=== PATIENT | male | born 1990 | race American Indian/Alaskan Native ===

== ENCOUNTER 2016-08-18 15:52 | Inpatient (IN) | payer OTHER ==
--- NOTE | 2016-08-18 16:31 | Emergency Department Report ---
Chief Complaint: Seizure Stated Complaint: SEIZURES/HEADACHES Time Seen by Provider: 08/18/16 16:21 - HPI History of Present Illness: 26-year-old male accompanied with his domestic partner, presents today with severe headache and vomiting. Partner states that he's had multiple seizures since last night. Denies head injury or trauma. Patient is currently taking Keppra and when had for his seizures but did not take his dose last night or this morning. Patient states is the worst headache he's ever had. - ROS Review of Systems: Per HPI - Exam Vital Signs: Vital Signs 08/18/16 16:00 Temperature 98.1 F Pulse Rate 93 H Respiratory 18 Rate Blood Pressure 136/83 O2 Sat by Pulse 100 Oximetry Physical Exam: General: 26-year-old male in mild to moderate distress. Well-developed, well- nourished. CV: Regular rate and rhythm. Lungs: Clear to auscultation bilaterally. MSE screening note: Focused history and physical exam performed. Due to findings the following was ordered: ED Disposition for MSE Condition: Stable
--- NOTE | 2016-08-18 16:42 | Cat Scan Report ---
CT HEAD WITHOUT CONTRAST INDICATION: Headache. COMPARISON: None similar at this institution. FINDINGS: Noncontrast head CT demonstrates normal ventricles and sulci without acute or recent infarct, hemorrhage, mass effect or midline shift. No abnormal extra-axial fluid collections. Posterior fossa structures and basilar cisterns appear within normal limits. Symmetric eye globes. Clear paranasal sinuses and mastoid air cells. Intact calvarium. Normal overlying scalp soft tissues. CONCLUSION: No acute intracranial CT abnormality, as described. Thank you for the opportunity to participate in this patient's care.
[2016-08-18 17:14] LABS: Hematocrit 42.5 % (35.5-45.6); Mean Corpuscular HGB Conc 33 % (32-34); Mean Corpuscular Hemoglobin 27 pg (28-32); Mean Corpuscular Volume 83 fl (84-94); Platelet Count 203 K/mm3 (140-440); Red Blood Count 5.11 M/mm3 (3.65-5.03); Red Cell Distribution Width 14.5 % (13.2-15.2); White Blood Count 16.1 K/mm3 (4.5-11.0)
[2016-08-18 17:28] LABS: Anion Gap 22 mmol/L; Blood Urea Nitrogen 11 mg/dL (9-20); Calcium 9.6 mg/dL (8.4-10.2); Carbon Dioxide 26 mmol/L (22-30); Chloride 99.8 mmol/L (98-107); Glucose 150 mg/dL (75-100); Potassium 4.6 mmol/L (3.6-5.0); Sodium 143 mmol/L (137-145)
--- NOTE | 2016-08-18 20:03 | Emergency Department Report ---
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 Apparently he witnessed several brief 1-2 minute seizures which typically occur "nocturnally". The patient has a history of nocturnal seizures for the past several years. He has been followed by a neurologist in [place]. He also he has been down here for some time now he does not have a neurologist nor a family doctor. He admits missing a few doses of his Keppra. He also is taking Vimpat. During the day the patient states he had a severe headache particularly this morning. His headache is still ongoing although it is mild now and he declines taking any pain medication. He also has had some intermittent nausea and has vomited once in the emergency department he denies neck pain or stiffness. He denies photophobia. He denies any significant ongoing nausea. The patient states that he had an HIV test last approximately one year ago and that it was negative. He denies any other medical problems or history of head trauma. -: Gradual, hour(s) Location: head (bifrontal nonradiating) Radiation: non-radiation Severity scale (0 -10): 0 Quality: aching Consistency: now resolved (no substantially improved) Improves with: none Worsens with: none Associated Symptoms: denies other symptoms Treatments Prior to Arrival: none - Related Data Home Medications Medication Instructions Recorded Confirmed Last Taken Lacosamide [Vimpat] 200 mg PO BID 08/18/16 08/18/16 Unknown levETIRAcetam [Keppra TAB] 500 mg PO TID 08/18/16 08/18/16 Unknown Allergies Allergy/AdvReac Type Severity Reaction Status Date / Time No Known Allergies Allergy Unverified 08/18/16 16:03 ED Review of Systems ROS: Stated complaint: SEIZURES/HEADACHES Other details as noted in HPI Constitutional: denies: chills, fever Eyes: denies: eye pain, eye discharge, vision change ENT: denies: ear pain, throat pain Respiratory: denies: cough, shortness of breath, wheezing Cardiovascular: denies: chest pain, palpitations Endocrine: no symptoms reported Gastrointestinal: denies: abdominal pain, nausea, diarrhea Genitourinary: denies: urgency, dysuria Musculoskeletal: denies: back pain, joint swelling, arthralgia Skin: denies: rash, lesions Neurological: headache. denies: weakness, paresthesias Psychiatric: denies: anxiety, depression Hematological/Lymphatic: denies: easy bleeding, easy bruising ED Past Medical Hx - Past Medical History Additional medical history: seizures - Social History Smoking Status: Never Smoker Substance Use Type: Alcohol - Medications Home Medications: Home Medications Medication Instructions Recorded Confirmed Last Taken Type Lacosamide [Vimpat] 200 mg PO BID 08/18/16 08/18/16 Unknown History levETIRAcetam [Keppra TAB] 500 mg PO TID 08/18/16 08/18/16 Unknown History ED Physical Exam - General Limitations: No Limitations General appearance: alert, in no apparent distress - Head Head exam: Present: atraumatic, normocephalic, normal inspection - Eye Eye exam: Present: normal appearance, PERRL, EOMI. Absent: scleral icterus Pupils: Present: normal accommodation - ENT ENT exam: Present: normal exam, mucous membranes moist - Neck Neck exam: Present: normal inspection. Absent: tenderness, meningismus - Respiratory Respiratory exam: Present: normal lung sounds bilaterally. Absent: respiratory distress - Cardiovascular Cardiovascular Exam: Present: regular rate, normal rhythm. Absent: systolic murmur, diastolic murmur, rubs, gallop - GI/Abdominal GI/Abdominal exam: Present: soft, normal bowel sounds. Absent: distended, tenderness, guarding, rebound, rigid - Rectal Rectal exam: Present: deferred - Extremities Exam Extremities exam: Present: normal inspection - Back Exam Back exam: Present: normal inspection - Neurological Exam Neurological exam: Present: alert, oriented X3, CN II-XII intact. Absent: motor sensory deficit - Psychiatric Psychiatric exam: Present: normal affect, normal mood - Skin Skin exam: Present: warm, dry, intact, normal color. Absent: rash ED Course Vital Signs 08/18/16 08/18/16 08/18/16 16:00 18:25 18:26 Temperature 98.1 F 98.2 F Temperature [ Intra-Procedure ] Temperature [ Post-Procedure] Temperature [ Pre-Procedure] Pulse Rate 93 H 80 Pulse Rate [ Intra-Procedure ] Pulse Rate [ Post-Procedure] Pulse Rate [Pre -Procedure] Respiratory 18 16 16 Rate Respiratory Rate [Intra- Procedure] Respiratory Rate [Post- Procedure] Respiratory Rate [Pre- Procedure] Blood Pressure 136/83 Blood Pressure [Intra- Procedure] Blood Pressure 135/78 [Left] Blood Pressure [Post-Procedure ] Blood Pressure [Pre-Procedure] O2 Sat by Pulse 100 99 99 Oximetry O2 Sat by Pulse Oximetry [ Intra-Procedure ] O2 Sat by Pulse Oximetry [Post -Procedure] O2 Sat by Pulse Oximetry [Pre- Procedure] 08/18/16 08/18/16 19:00 21:25 Temperature 98 F Temperature [ 99.7 F H Intra-Procedure ] Temperature [ 98.9 F Post-Procedure] Temperature [ 99.2 F Pre-Procedure] Pulse Rate 82 Pulse Rate [ 103 H Intra-Procedure ] Pulse Rate [ 96 H Post-Procedure] Pulse Rate [Pre 96 H -Procedure] Respiratory 16 Rate Respiratory 20 Rate [Intra- Procedure] Respiratory 20 Rate [Post- Procedure] Respiratory 18 Rate [Pre- Procedure] Blood Pressure Blood Pressure 115/55 [Intra- Procedure] Blood Pressure 123/68 [Left] Blood Pressure 115/67 [Post-Procedure ] Blood Pressure 122/53 [Pre-Procedure] O2 Sat by Pulse 100 Oximetry O2 Sat by Pulse 100 Oximetry [ Intra-Procedure ] O2 Sat by Pulse 97 Oximetry [Post -Procedure] O2 Sat by Pulse 98 Oximetry [Pre- Procedure] - Reevaluation(s) Reevaluation #1: Lumbar puncture performed. Patient tolerated well. Perhaps an hour or an hour and a half later he had an additional generalized seizure. It was witnessed. He was given a gram of Keppra IV. Case was discussed with the hospitalist Dr. Trujillo. The patient will be admitted for further care and evaluation. His lumbar puncture cell count was 0/0. 08/18/16 23:37 - Lumbar Puncture Consent Obtained: verbal consent Time Out Performed: No Indication for Procedure: headache, other Patient Position: Sitting Upright/Leaning F Skin Prep: Povidone-Iodine 1% Local Anesthetic Used: Lidocaine 1% Spinal Needle Gauge: 20G Spinal Needle Length: 3.5in Interspace Used: L4-L5 Fluid Initially Obtained: clear Complications: none Patient Tolerated Procedure: well Additional Comments: insered less than 2". Single puncture clear fluid. ED Medical Decision Making - Lab Data Result diagrams: 08/18/16 16:57 08/18/16 16:57 Laboratory Results - last 24 hr 08/18/16 08/18/16 08/18/16 16:57 16:57 16:57 WBC 16.1 H RBC 5.11 H Hgb 14.0 Hct 42.5 MCV 83 L MCH 27 L MCHC 33 RDW 14.5 Plt Count 203 Lymph % (Auto) 6.7 L [place] % (Auto) 4.2 Eos % (Auto) 0.0 Baso % (Auto) 0.0 Lymph # 1.1 L [place] # 0.7 Eos # 0.0 Baso # 0.0 Seg Neutrophils % 89.1 H Seg Neutrophils # 14.4 H Sodium 143 Potassium 4.6 Chloride 99.8 Carbon Dioxide 26 Anion Gap 22 BUN 11 Creatinine 1.0 Estimated GFR > 60 BUN/Creatinine Ratio 11.00 Glucose 150 H Calcium 9.6 Plasma/Serum Alcohol < 0.01 Laboratory Results - last 24 hr 08/18/16 08/18/16 08/18/16 16:57 16:57 16:57 WBC 16.1 H RBC 5.11 H Hgb 14.0 Hct 42.5 MCV 83 L MCH 27 L MCHC 33 RDW 14.5 Plt Count 203 Lymph % (Auto) 6.7 L [place] % (Auto) 4.2 Eos % (Auto) 0.0 Baso % (Auto) 0.0 Lymph # 1.1 L [place] # 0.7 Eos # 0.0 Baso # 0.0 Seg Neutrophils % 89.1 H Seg Neutrophils # 14.4 H Sodium 143 Potassium 4.6 Chloride 99.8 Carbon Dioxide 26 Anion Gap 22 BUN 11 Creatinine 1.0 Estimated GFR > 60 BUN/Creatinine Ratio 11.00 Glucose 150 H Calcium 9.6 Urine Color Urine Turbidity Urine pH Ur Specific [place] Urine Protein Urine Glucose (UA) Urine Ketones Urine Blood Urine Nitrite Urine Bilirubin Urine Urobilinogen Ur Leukocyte Esterase Urine WBC (Auto) Urine RBC (Auto) U Epithel Cells (Auto) Uric Acid Crystals Urine Mucus CSF Appearance CSF Color CSF WBC CSF RBC CSF Seg Neutrophils CSF Lymphocytes % CSF Reactive Lymphs CSF Monocytes % CSF Eosinophils % CSF Basophils CSF Comment CSF Pathologist Review CSF Glucose CSF Total Protein Urine Opiates Screen Urine Methadone Screen Ur Barbiturates Screen Ur Phencyclidine Scrn Ur Amphetamines Screen U Benzodiazepines Scrn Urine Cocaine Screen U Marijuana (THC) Screen Drugs of Abuse Note Plasma/Serum Alcohol < 0.01 08/18/16 08/18/16 08/18/16 20:33 20:33 21:40 WBC RBC Hgb Hct MCV MCH MCHC RDW Plt Count Lymph % (Auto) [place] % (Auto) Eos % (Auto) Baso % (Auto) Lymph # [place] # Eos # Baso # Seg Neutrophils % Seg Neutrophils # Sodium Potassium Chloride Carbon Dioxide Anion Gap BUN Creatinine Estimated GFR BUN/Creatinine Ratio Glucose Calcium Urine Color Yellow Urine Turbidity Cloudy Urine pH 5.0 Ur Specific [place] 1.015 Urine Protein <15 mg/dl Urine Glucose (UA) Neg Urine Ketones 20 Urine Blood Neg Urine Nitrite Neg Urine Bilirubin Neg Urine Urobilinogen < 2.0 Ur Leukocyte Esterase Neg Urine WBC (Auto) 1.0 Urine RBC (Auto) 1.0 U Epithel Cells (Auto) < 1.0 Uric Acid Crystals 2+ Urine Mucus Few CSF Appearance Clear CSF Color Colorless CSF WBC 0 CSF RBC 0 CSF Seg Neutrophils 0 CSF Lymphocytes % 0 CSF Reactive Lymphs 0 CSF Monocytes % 0 CSF Eosinophils % 0 CSF Basophils 0 CSF Comment No cells seen CSF Pathologist Review C CSF Glucose 83 CSF Total Protein 24 Urine Opiates Screen Presumptive negative Urine Methadone Screen Presumptive negative Ur Barbiturates Screen Presumptive negative Ur Phencyclidine Scrn Presumptive negative Ur Amphetamines Screen Presumptive negative U Benzodiazepines Scrn Presumptive negative Urine Cocaine Screen Presumptive negative U Marijuana (THC) Screen Presumptive negative Drugs of Abuse Note Disclamer Plasma/Serum Alcohol - Radiology Data Radiology results: report reviewed (no intracranial abnormality on CT) interpreted by me: No intracranial ABN Critical care attestation.: If time is entered above; I have spent that time in minutes in the direct care of this critically ill patient, excluding procedure time. ED Disposition Clinical Impression: Recurrent seizures Epilepsy Qualifiers: Epilepsy type: unspecified Intractability: not intractable Status epilepticus: without status epilepticus Qualified Code(s): G40.909 - Epilepsy, unspecified, not intractable, without status epilepticus Cephalalgia Qualifiers: Headache type: unspecified Headache chronicity pattern: acute headache Intractability: not intractable Qualified Code(s): R51 - Headache Leukocytosis Qualifiers: Leukocytosis type: unspecified Qualified Code(s): D72.829 - Elevated white blood cell count, unspecified Disposition: OP ADMITTED IP TO THIS HOSP Is pt being admited?: Yes Does the pt Need Aspirin: Yes Condition: Stable Referrals: PRIMARY CARE, [Primary Care Provider] - 3-5 Days Time of Disposition: 23:41
[2016-08-18 20:40] LABS: Urine Drugs of Abuse Note Disclamer
[2016-08-18 21:14] LABS: Bilirubin,Urine NEG (Negative); Blood,Urine NEG (Negative); Ketones,Urine 20 mg/dL (Negative); Leukocyte Esterase,Urine NEG (Negative); Mucus,Urine FEW /HPF; Nitrite,Urine NEG (Negative); Protein,Urine <15 mg/dL mg/dL (Negative); Uric Acid Crystals,Urine 2+; Urobilinogen,Urine < 2.0 mg/dL (<2.0)
[2016-08-18] MEDS ORDERED: NORCO 5/325 ONE (21:40)
[2016-08-18] MEDS ORDERED: NORCO 5/325 PO ONE (22:02)
[2016-08-18] MEDS ORDERED: ZOFRAN ODT PO ONE (22:03)
[2016-08-18 22:24] LABS: Glucose,CSF 83 mg/dL
[2016-08-18 22:33] LABS: Appearance,CSF Clear; White Blood Cell,CSF 0 /mm3 (1-10)
[2016-08-18 22:46] LABS: Basophils CSF 0 %; CSF Diff Status Complete
[2016-08-18] MEDS ORDERED: ATIVAN ONE (23:01)
[2016-08-18] MEDS ORDERED: KEPPRA 1,000 MG/NS 0.75% 100ML 1,000 MG/100 ML BAG IV ONE ×2 (23:01→23:18)
--- NOTE | 2016-08-18 23:36 | History and Physical Report ---
History of Present Illness Date of examination: 08/18/16 History of present illness: 26-year-old man with a history of seizures comes emergency room because he had 3 seizures last night and one today. Patient states that he missed doses of his keppra. Patient was complaining of a headache, nausea vomiting, that has now improved significantly. His headache is frontal, dull, constant, intensity to really 10, no radiation any cannot identify exacerbating or relieving factors. Patient denies chest pain, palpitation, shortness of breath, cough, abdominal pain, hematochezia, dysuria, frequency, focal weakness, dysarthria, fever chills , polydipsia polyuria, hot or cold intolerance, easy bruisability, or rash or bleeding from mucosal membrane, rhinorrhea, epistaxis, earache, tinnitus, blurry vision, eye discharge, anxiety, depression. Other review of systems negative PAST SURGICAL HISTORY: None SOCIAL HISTORY: Denies alcohol, tobacco, drugs FAMILY HISTORY: Hypertension Medications and Allergies Allergies Allergy/AdvReac Type Severity Reaction Status Date / Time No Known Allergies Allergy Unverified 08/18/16 16:03 Home Medications Medication Instructions Recorded Confirmed Last Taken Type Lacosamide [Vimpat] 200 mg PO BID 08/18/16 08/18/16 Unknown History levETIRAcetam [Keppra TAB] 500 mg PO TID 08/18/16 08/18/16 Unknown History Exam - Physical Exam Narrative exam: Gen. appearance: Patient lying in bed, no apparent distress HEENT: Normocephalic, atraumatic, pupils equally round and reactive to light, extraocular movement intact, and no sclericterus,. No JVD or thyromegaly or nodule,neck supple, no carotid bruit ,mucous membranes moist, no exudate or erythema Heart: S1, S2, regular rate and rhythm Lungs: Clear to auscultation bilaterally, breathing comfortable Abdomen: Positive bowel sounds, nontender, nondistended, no organomegaly Extremity: No edema, cyanosis, clubbing Skin: No rash, nodules, warm, dry Neuro: Oriented 3, cranial nerves II-12 intact, speech is fluent, motor and sensory intact - Constitutional Vitals: Temp Pulse Resp BP Pulse Ox 99.2 F 96 H 18 122/53 98 08/18/16 21:25 08/18/16 21:25 08/18/16 21:25 08/18/16 21:25 08/18/16 21:25 Results - Labs CBC & Chem 7: 08/18/16 16:57 08/18/16 16:57 Labs: Abnormal lab results 08/18/16 08/18/16 Range/Units 16:57 16:57 WBC 16.1 H (4.5-11.0) K/mm3 RBC 5.11 H (3.65-5.03) M/mm3 MCV 83 L (84-94) fl MCH 27 L (28-32) pg Lymph % (Auto) 6.7 L (13.4-35.0) % Lymph # 1.1 L (1.2-5.4) K/mm3 Seg Neutrophils % 89.1 H (40.0-70.0) % Seg Neutrophils # 14.4 H (1.8-7.7) K/mm3 Glucose 150 H (75-100) mg/dL - Imaging and Cardiology CT Scan - head: report reviewed Assessment and Plan Seizure, acute on chronic Leukocytosis most likely secondary to stress Admits medicine Status post loading dose of Keppra Restart seizure medications, start IV Ativan as needed for breakthrough seizure Start DVT prophylaxis
[2016-08-18] MEDS ORDERED: BABY ASPIRIN PO ONE (23:42)
[2016-08-19] MEDS ORDERED: DULCOLAX PR PRN (00:13)
[2016-08-19] MEDS ORDERED: TYLENOL PO PRN (00:13)
[2016-08-19] MEDS ORDERED: MILK OF MAGNESIA PO PRN (00:13)
[2016-08-19] MEDS ORDERED: ZOFRAN IV PRN (00:13)
[2016-08-19] MEDS ORDERED: ATIVAN IV PRN (00:13)
[2016-08-19] MEDS ORDERED: PERCOCET 5/325 PO PRN (00:13)
[2016-08-19] MEDS ORDERED: NACL 0.9% 1000 ML 1,000 ML IV SCH (01:00)
[2016-08-19] MEDS ORDERED: KEPPRA PO SCH (08:00)
--- NOTE | 2016-08-19 09:31 | Admit Criteria Form ---
Admission Criteria Documentation: SEIZURE Clinical Indications for Admission to Inpatient Care (Place 'X' for any and all applicable criteria): Admission is indicated for seizure and ANY ONE of the following(1)(2)(3)(4)(5): [X]I. Inpatient admission required rather than observation care (Also use Seizure: Observation Care Criteria as appropriate) because of ANY ONE of the following: [ ]a) Altered mental status that is severe or persistent [ ]b) New focal neurologic deficit that is severe or persistent [ ]c) Metabolic disorder (eg, hypoglycemia, hyponatremia) that is severe or persistent [X]d) Recurrent seizure [ ]e) Outpatient antiseizure regimen cannot be established (eg , patient cannot tolerate medication, initiation requires inpatient care) [ ]f) Need for ongoing intravenous infusion of antiseizure medication [ ]g) Cardiac arrhythmias of immediate concern [ ]h) Cerebral bleeding, hydrocephalus, or vasospasm monitoring (14) [ ]i) Increased intracranial pressure or cerebral edema monitoring (15) [ ]j) Other treatment or monitoring requiring inpatient admission [ ]II. Status epilepticus [A] or repetitive seizures not controlled with emergent treatment (6)(8) [ ]III. Brain disorder (eg, tumor, edema, and hydrocephalus) that requiring monitoring or intervention available only at inpatient level of care. [ ]IV. Brain insult (eg, severe trauma, stroke, drug toxicity, or withdrawal) that requires monitoring or intervention available only at inpatient level of care (10)(11) Extended stay beyond goal length of stay may be needed for (22) [ ]a) Complications of status epilepticus [ ]b) Refractory status epilepticus [ ]c) Etiology-specific therapy for conditions such as CONTROL MANAGER infection, head injury,eclampsia, severe metabolic abnormalities, and brain tumor [ ]d) Residual neurologic damage, [ ]e) Initiation of significant change to anticonvulsant treatment [ ]f) Older patients (65 years or older) [ ]g) Patient requiring intubation (eg, to protect airway) The original [facility] content created by [employer] has been revised. The portions of the content which have been revised are identified through the use of italic text or in bold, and [facility] has neither reviewed nor approved the modified material. All other unmodified content is copyright [facility] [employer]. Please see references footnoted in the original [facility] edition 2016 Admission Criteria Met: Yes
[2016-08-19 09:34] VITALS: BP 115/55
--- NOTE | 2016-08-19 09:43 | Discharge Summary ---
Providers - Providers Date of Admission: 08/18/16 23:59 Date of discharge: 08/19/16 Attending physician: ABDULAZIZ LOZADA Primary care physician: MANNY HODGE MD Hospitalization Condition: Good Disposition: DISCHARGED TO HOME OR SELFCARE - Discharge Diagnoses (1) Breakthrough seizure Status: Acute (2) Seizure disorder Status: Chronic (3) Non-compliance Status: Acute Core Measure Documentation - Palliative Care Palliative Care/ Comfort Measures: Not Applicable - Core Measures Any of the following diagnoses?: none Exam - Constitutional Vitals: Temp Pulse Resp BP Pulse Ox 98.4 F 82 18 115/55 96 08/19/16 08:00 08/19/16 08:00 08/19/16 08:00 08/19/16 08:00 08/19/16 08:05 General appearance: Present: no acute distress Plan Activity: no driving until cleared by PCP Diet: regular Additional Instructions: 1.Follow up with PCP in 1 week. 2.Follow with neurologist in 1 week. 3.No driving for at least 6 months and until cleared by Physician. Follow up with: PRIMARY MD NAVEEN [Primary Care Provider] - 3-5 Days
[2016-08-19] MEDS ORDERED: VIMPAT PO SCH (10:00)
[2016-08-19] MEDS ORDERED: LOVENOX SUB-Q SCH (10:00)
[2016-08-19 10:56] LABS: Hematocrit 38.2 % (35.5-45.6); Hemoglobin 12.1 gm/dl (11.8-15.2); Mean Corpuscular HGB Conc 32 % (32-34); Mean Corpuscular Hemoglobin 27 pg (28-32); Mean Corpuscular Volume 85 fl (84-94); Platelet Count 175 K/mm3 (140-440); White Blood Count 13.8 K/mm3 (4.5-11.0)
== END 2016-08-19 12:47 | disposition home or self-care (01) | DRG 101 ==
LOC: ED 15:52 → 3A 23:59 → 4A 08-19 01:42
PROVIDERS: ADMIT Internal Medicine; ATTEND Internal Medicine
PROC: 009U3ZX Drainage of Spinal Canal, Percutaneous Approach, Diagnostic (ICD-10-PCS; principal; 2016-08-18)
DX: G40.909 Epilepsy, unspecified, not intractable, without status epilepticus (principal); D72.829 Elevated white blood cell count, unspecified
CPT/HCPCS: 36415; 70450; 80048; 80307; 80320; 81001; 82947; 84160; 85025; 85027; 86403; 86592; 87116; 89051; 96365; G0480; J1650; J1953; J2060; J7030; Q0162